=== PATIENT | female | born 1985 | race African-American/Black ===

== ENCOUNTER 2020-12-18 12:30 | Outpatient (RCR) | payer OTHER, SELFPAY ==
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
--- NOTE | 2020-11-15 10:56 | PTOPEVAL ---
PHYSICAL THERAPY RE-EVALUATION AND UPDATED PLAN OF CARE 11-15-20 Refer to the clinical summary below for her status and improvements since the initial evaluation. PT is to continue treatments 2x/week for 5 weeks. Thank you for referring Klarissa Guzman to [facility].? Please review, sign, date and return this updated plan of care [facility]. I agree with and certify that the following plan of care is medically necessary. Referring Physician Date Attending Provider: Reynold Webster MD Document 11/15/20 10:00 MICHI (Rec: 11/15/20 10:55 MICHI [id number]) Assessment Status Re-evaluation Subjective Information Klarissa reports: her leg is Query Text:As Reported By Patient/ smaller, pants are looser over Family her thigh and not hurting as much; saw and is awaiting appointment for US of thigh; wants to continue PT-- feels like it is really helping her. Pain Assessment Timing of Pain Assessment Timing of Pain Assessment Assessment Pain Scale Pain Scale Used Numeric (1 - 10) Self Report Pain Assessment Right Thigh(s) Reported Pain Level 0 Pain Description Spasms Pain Frequency Chronic Lowest Pain Intensity 0 Greatest Pain Intensity 6 Other Pain Aggravating Factors spasms with sleeping-1x/night take muscle relaxers & ease; Additional Pain Comments walking tolerance 30-40 min, pain in entire R leg; Pain Score Pain Score 0: Self Report Interventions Used Interventions Used By Clinicians Exercise Lower Extremity Range of Motion General Lower Extremity Range of Motion Gross Lower Extremity Range of Motion supine: R hip IR 30', ER 35', Comments SLR 80'- no increase in pain; Lower Extremity Muscle Strength Testing General Lower Extremity Strength Gross Lower Extremity Strength single leg standing R 13 seconds; supine R: SLR x 13 reps; hip abduction x 10 reps; pain and weakness with R LE exercises; Lymphedema Evaluation Skin Inspection Location Right Lower Extremity Tissue Texture Hard Lymphedema Stage II Skin Inspection Comment --anterior hip crease scar- moderate adhesions/fibrosis and firmness along scar and lateral to scar; -- lateral thigh, area of fibrotic tissue/firmness: measure superior/inferior 11 cm and medial/lateral 9 cm;
--- NOTE | 2020-11-23 10:29 | PCPTNOTE ---
Patient called & cancelled scheduled appointment this date due to illness.
--- NOTE | 2020-12-04 09:56 | PCPTNOTE ---
Pt no showed for today's appt. Called pt and she had been looking at the her October calender and had the wrong time. Pt also stated she would not be able to make her appt. due to another dr. appt. Pt did state that she was doing fine with her swelling but her right foot has been bothering her and that is why she is going to the dr on .
--- NOTE | 2020-12-18 13:19 | PTOPEVAL ---
PHYSICAL THERAPY DISCHARGE 12-18-20 Refer to the clinical summary below for her status at today's reevaluation, compared to the last session. The goals were partially achieved; She will be discharged at this time. Thank you for referring Klarissa Guzman to [facility].? Please review, sign, date and return this Discharge FAITH. I agree with and certify that the following plan of care is medically necessary. Referring Physician Date Attending Provider: Reynold Webster MD Document 12/18/20 12:35 MICHI (Rec: 12/18/20 13:19 MICHI [id number]) Assessment Status Discharge Subjective Information Klarissa reports: thigh high Query Text:As Reported By Patient/ compression garment is Family comfortable, is able to get on /off OK; vascular dr cleared her, released her and no longer have to take blood thinner; is getting stronger and scars are softer; is doing her exercises and self massage at home; agrees to discharge from therapy. Pain Assessment Timing of Pain Assessment Timing of Pain Assessment Assessment Pain Scale Pain Scale Used Numeric (1 - 10) Self Report Pain Assessment Right Thigh(s) Reported Pain Level 0 Pain Frequency Chronic,Intermittent Other Pain Description spams, stiffness Lowest Pain Intensity 0 Greatest Pain Intensity 4 Pain Aggravating Factors Walking,Weight Bearing/ Standing Other Pain Aggravating Factors stand/walk one &half hour, then have to sit/rest Pain Score Pain Score 0: Self Report Additional Pain Score Comments is sleeping through the night, not awaken due to leg pain; Interventions Used Interventions Used By Clinicians Education,Exercise Lower Extremity Range of Motion General Lower Extremity Range of Motion Gross Lower Extremity Range of Motion supine R hip: IR 30', ER 40'; Comments SLR/hamstring stretch to 80'- no pain in R hip Lower Extremity Muscle Strength Testing General Lower Extremity Strength Gross Lower Extremity Strength R LE strength: single leg standing 14 seconds ; sitting ankle circles with good control supine SLR x 24 reps; no pain with active movements of R LE but ankle stiff and feels numb still; Lymphedema Evaluation Skin Inspection Location Right Lower Extrem
== END 2020-12-20 08:38 | disposition home or self-care (01) ==
LOC: ANHPT 12:30
PROVIDERS: Visit Provider Internal Medicine
DX: S32.9XXS Fracture of unspecified parts of lumbosacral spine and pelvis, sequela (principal); S82.892S Other fracture of left lower leg, sequela; T81.40XD Infection following a procedure, unspecified, subsequent encounter
CPT/HCPCS: 97110; 97140; 97161